=== PATIENT | female | born 1990 | race Caucasian/White ===

== ENCOUNTER 2021-07-22 19:38 | Emergency (ER) | payer OTHER ==
[~2021-07-22] VITALS: Ht 167.6 cm; Wt 91.2 kg
[~2021-07-22 19:38] MED LIST: ACTICIN 5% CREA60 G1 TOP; ACYCLOVIR 400400 M1 PO; ANTIVERT25 MG PO; ATIVAN1 MG PO; DEPO-PROVERA; IBUPROFEN 800800 MG PO; MACROBID 100 M100 M1 PO; NOHOMEMEDICATIONS; PAXIL10 MG; PENICILLIN; PHENERGAN 25 MG25 M1 PO; PHENERGAN25 M2 RC; PRENATAL COMPL1 EACH PO; TRINATE TABLET1 TAB PO; ZOFRAN 4 MG ORAL4 M1 DIS; ZOVIRAX 5% OINT15 G1 TP; ZPAK PO
[2021-07-22] MEDS ORDERED: SLOW FE142 MG PO (19:48)
[2021-07-22] MEDS ORDERED: LIDOCAINE VISC100 ML SWISH&SPIT (21:04)
[2021-07-22] MEDS ORDERED: APAP W/CODEINE1 TA2 PO (21:04)
[2021-07-22] MEDS ORDERED: VISTARIL 25 MG25 M1 PO (21:04)
[2021-07-22] MEDS ORDERED: AMOXIL 875 MG875 M1 PO (21:04)
== END 2021-07-22 21:05 | disposition home or self-care (01) ==
LOC: M.ERS 19:38
DX: K08.89 Other specified disorders of teeth and supporting structures (principal); F41.9 Anxiety disorder, unspecified; Z79.899 Other long term (current) drug therapy